=== PATIENT | female | born 1945 | race African-American/Black ===

== ENCOUNTER 2018-10-19 06:10 | Inpatient (IN) | payer MEDICARE, MEDICAID ==
[~2018-10-19] VITALS: Ht 160 cm; Wt 85.3 kg
[~2018-10-19 06:10] MED LIST: CIPR-213 PO; FURO80TA3 PO; GLIP10TA10 PO; METR-167 PO; SPIR100T5 PO
[2018-10-19] MEDS ORDERED: SODIUM CHLORIDE 0.9% 1,000 ML IV SCH (07:00)
[2018-10-19 07:31] LABS: CLARITY URINE CLOUDY (CLEAR); COLOR URINE YELLOW (YELLOW); KETONES URINE NEGATIVE (NEGATIVE); LEUKOCYTE ESTERASE URINE 1+ (NEGATIVE); NITRITE URINE NEGATIVE (NEGATIVE); OCCULT BLOOD URINE NEGATIVE (NEGATIVE); PROTEIN URINE NEGATIVE (NEGATIVE); SPECIFIC GRAVITY URINE 1.008 (1.005-1.030); UROBILINOGEN URINE 0.2 E.U./dL (0.2-1.0)
[2018-10-19] MEDS ORDERED: BUPIVACAINE HCL 0.5% (5MG/ML) 50ML ONE (08:27)
[2018-10-19] MEDS ORDERED: SKIN ADHESIVE 0.7 GM EA TOP ONE (08:27)
[2018-10-19] MEDS ORDERED: PROP10TA10 PO (08:32)
[2018-10-19] MEDS ORDERED: METF-414 PO (08:34)
[2018-10-19] MEDS ORDERED: POTA8TAB8 PO (08:35)
[2018-10-19] MEDS ORDERED: NEOSTIGMINE METHYLSULFATE 1MG/ML 10 ML VIAL ONE (08:44)
[2018-10-19] MEDS ORDERED: FENTANYL CITRATE/PF 50MCG/ML 2ML VIAL ONE (08:44)
[2018-10-19] MEDS ORDERED: ROCURONIUM BROMIDE 10MG/ML VIAL 5ML IV ONE (08:45)
[2018-10-19] MEDS ORDERED: MIDAZOLAM HCL 2 MG/2 ML VIAL ONE (08:45)
[2018-10-19] MEDS ORDERED: CEFAZOLIN SODIUM 1000MG/VIAL ONE (08:45)
[2018-10-19] MEDS ORDERED: PROPOFOL 200MG/20ML VIAL IV ONE (08:45)
[2018-10-19] MEDS ORDERED: ONDANSETRON HCL 4MG/2ML INJ ONE (08:45)
[2018-10-19] MEDS ORDERED: EPHEDRINE SULFATE 50MG/ML VIAL ONE (08:45)
[2018-10-19] MEDS ORDERED: GLYCOPYRROLATE 0.2 MG/ML 2ML VIAL ONE (08:45)
[2018-10-19] MEDS ORDERED: SODIUM CHLORIDE 0.9% 10ML VIAL ONE (08:45)
[2018-10-19] MEDS ORDERED: LIDOCAINE HCL/PF 1% 10 MG/ML 5ML VIAL ONE (08:45)
[2018-10-19] MEDS ORDERED: SUCCINYLCHOLINE CHLORIDE 200MG/10ML IV ONE (08:45)
[2018-10-19] MEDS ORDERED: METOCLOPRAMIDE HCL 10MG/2ML VIAL ONE (08:45)
[2018-10-19] MEDS ORDERED: PHENYLEPHRINE HCL 10 MG/ML 1ML (IV VIAL) IV ONE (08:45)
[2018-10-19] MEDS ORDERED: LABETALOL HCL 5MG/ML VIAL 20ML IV ONE (09:53)
[2018-10-19] MEDS ORDERED: SODIUM CHLORIDE 0.9% 1,000 ML IV ONE (10:06)
[2018-10-19] MEDS ORDERED: MEPERIDINE HCL/PF 25MG/ML CPJ IV PRN ×2 (10:15)
[2018-10-19] MEDS ORDERED: ONDANSETRON HCL 4MG/2ML INJ IV PRN ×2 (10:15→17:30)
[2018-10-19] MEDS ORDERED: HYDROMORPHONE HCL/PF 2MG/ML CPJ IV PRN ×2 (10:15→17:30)
[2018-10-19 12:02] LABS: BASOPHILS % 0.3 % (0.0-2.0); EOSINOPHILS % 0.4 % (0.0-5.0); HEMATOCRIT. 32.2 % (36.0-48.0); HEMOGLOBIN. 10.8 g/dL (12.0-16.0); MEAN CORPUSCULAR HEMOGLOBIN 31.7 pg (28.0-32.0); MEAN CORPUSCULAR VOLUME 94.6 fL (81.0-99.0); MEAN PLATELET VOLUME 9.9 fl (7.4-10.4); NEUTROPHILS % 81.3 % (40.0-76.0); PLATELET 60 x1000/uL (130-400); RED BLOOD CELL COUNT 3.41 mill/uL (4.2-5.4); RED CELL DISTRIBUTION WIDTH 14.5 % (11.6-14.6)
[2018-10-19 12:09] LABS: CHLORIDE 111 mEq/L (98-107)
[2018-10-19 15:01] VITALS: BP 114/50
[2018-10-19 15:10] VITALS: BP 112/52
[2018-10-19] MEDS ORDERED: DEXTROSE 50% WATER 50ML SYRINGE IV PRN (16:00)
[2018-10-19] MEDS: BLOOD SUGAR DIAGNOSTIC STRIP TEST SCH ×2 (17:14→21:06)
[2018-10-19] MEDS: INSULIN LISPRO 100 UNITS/ML SUBCUT SCH ×2 (17:15→21:07)
[2018-10-19 17:23] VITALS: BP 106/52
[2018-10-19] MEDS ORDERED: SODIUM CHLORIDE 0.45% 1,000 ML IV SCH (17:23)
[2018-10-19] MEDS ORDERED: CLONIDINE 0.1MG TABLET PO PRN (17:30)
[2018-10-19] MEDS ORDERED: ACETAMINOPHEN 325MG TABLET PO PRN (17:30)
[2018-10-19] MEDS ORDERED: ENOXAPARIN 40MG/0.4ML SYR SUBCUT SCH (17:30)
[2018-10-19] MEDS ORDERED: MAGNESIUM/ALUMINUM HYDROXIDE/SIMETHICONE 30ML UDC PO PRN (17:30)
[2018-10-19] MEDS ORDERED: NA PHOS,M-B/NA PHOS,DI-BA ENEMA 118ML PR PRN (17:30)
[2018-10-19] MEDS ORDERED: LORAZEPAM 2MG/ML CPJ IV PRN (17:30)
[2018-10-19] MEDS ORDERED: IPRATROPIUM/ALBUTEROL 0.5-3(2.5)MG/3ML NEB HHN PRN (17:30)
[2018-10-19] MEDS ORDERED: DOCUSATE SODIUM 100MG CAPSULE PO PRN (17:30)
[2018-10-19] MEDS ORDERED: HYDROCODONE/ACETAMINOPHEN 10/325MG TABLET PO PRN (17:30)
[2018-10-19] MEDS ORDERED: GUAIFENESIN 200MG/10ML SUGAR FREE UDC PO PRN (17:30)
[2018-10-19] MEDS ORDERED: DIPHENHYDRAMINE 50MG/ML VIAL IV PRN (17:30)
[2018-10-19] MEDS: DEXT 5%/0.45% NACL 1000ML 1,000 ML IV SCH (18:13)
[2018-10-19 20:00] VITALS: BP 106/59
[2018-10-19] MEDS ORDERED: ENOXAPARIN 30MG/0.3ML SYR SUBCUT SCH (21:00)
[2018-10-19] MEDS ORDERED: CEFTRIAXONE 1 G PREMIX 50 ML IV NR (21:00)
[2018-10-19] MEDS: SODIUM CHLORIDE 0.9% INJ 3ML FLUSH IVF SCH (21:06)
[2018-10-20] VITALS: BP 102/50
[2018-10-20 01:52] LABS: CREATINE KINASE 81 IU/L (26-192); CREATINE KINASE MB FRACTION 1.3 ng/mL (0.5-3.6)
[2018-10-20 04:00] VITALS: BP 109/48
[2018-10-20] MEDS: SODIUM CHLORIDE 0.9% INJ 3ML FLUSH IVF SCH ×2 (05:12→13:29)
[2018-10-20] MEDS: BLOOD SUGAR DIAGNOSTIC STRIP TEST SCH ×2 (06:44→13:11)
[2018-10-20] MEDS: DEXT 5%/0.45% NACL 1000ML 1,000 ML IV SCH (06:44)
[2018-10-20 08:00] VITALS: BP 118/51
[2018-10-20 08:06] LABS: BASOPHILS % 0.1 % (0.0-2.0); HEMATOCRIT. 25.6 % (36.0-48.0); HEMOGLOBIN. 8.8 g/dL (12.0-16.0); LYMPHOCYTES % 7.8 % (20.0-50.0); MEAN CORPUSCULAR HEMOGLOBIN 31.8 pg (28.0-32.0); MEAN CORPUSCULAR VOLUME 92.8 fL (81.0-99.0); MEAN PLATELET VOLUME 9.8 fl (7.4-10.4); MONOCYTES % 11.6 % (2.0-8.0); NEUTROPHILS % 80.5 % (40.0-76.0); PLATELET 90 x1000/uL (130-400); RED BLOOD CELL COUNT 2.76 mill/uL (4.2-5.4); RED CELL DISTRIBUTION WIDTH 14.5 % (11.6-14.6)
[2018-10-20 09:09] LABS: CHLORIDE 110 mEq/L (98-107)
[2018-10-20] MEDS: INSULIN LISPRO 100 UNITS/ML SUBCUT SCH ×2 (09:15→13:25)
[2018-10-20 09:24] LABS: CREATINE KINASE 68 IU/L (26-192)
[2018-10-20 09:33] LABS: CREATINE KINASE MB FRACTION 1.2 ng/mL (0.5-3.6)
[2018-10-20 12:00] VITALS: BP 100/44
[2018-10-20 16:00] VITALS: BP 117/46
[2018-10-20 16:17] VITALS: BP 110/78
== END 2018-10-20 17:48 | disposition home health service (06) | DRG 354 ==
LOC: OR 06:10 → 6WST 06:11
PROVIDERS: ADMIT Surgery; ATTEND Surgery
PROC: 0WUF0JZ Supplement Abdominal Wall with Synthetic Substitute, Open Approach (ICD-10-PCS; principal; 2018-10-19)
DX: K43.2 Incisional hernia without obstruction or gangrene (principal); N39.0 Urinary tract infection, site not specified; E11.9 Type 2 diabetes mellitus without complications; I10 Essential (primary) hypertension; K74.60 Unspecified cirrhosis of liver; I95.9 Hypotension, unspecified; R00.1 Bradycardia, unspecified; Z79.84 Long term (current) use of oral hypoglycemic drugs; Z79.899 Other long term (current) drug therapy; Z86.718 Personal history of other venous thrombosis and embolism; Z95.828 Presence of other vascular implants and grafts
CPT/HCPCS: 36415; 71045; 80048; 81003; 82550; 82553; 82962; 84484; 97116; 97162; C1781; J0330; J0690; J0696; J1170; J1815; J2175; J2250; J2370; J2405; J2704; J2710; J2765; J3010; J3490